=== PATIENT | female | born 1975 | race American Indian/Alaskan Native ===

== ENCOUNTER 2017-05-13 15:00 | Inpatient (IN) | payer OTHER ==
[2017-05-13] MEDS ORDERED: ASPIRIN PO ONE (15:12)
[2017-05-13 16:00] LABS: BUN/Creatinine Ratio 13; Blood Urea Nitrogen 8 mg/dL (7-17); Calcium 8.1 mg/dL (8.4-10.2); Hemolysis Index 0
[2017-05-13 16:03] LABS: Basophils # (Auto) 0.1 K/mm3 (0.0-0.1); Basophils % (Auto) 0.9 % (0.0-1.8); Eosinophils # (Auto) 0.3 K/mm3 (0.0-0.4); Eosinophils % (Auto) 4.9 % (0.0-4.3); Lymphocytes # (Auto) 2.6 K/mm3 (1.2-5.4); Lymphocytes % (Auto) 39.5 % (13.4-35.0); Mean Corpuscular HGB Conc 28 % (30-34); Monocytes # (Auto) 0.9 K/mm3 (0.0-0.8); Monocytes % (Auto) 14.1 % (0.0-7.3); Red Blood Count 4.28 M/mm3 (3.65-5.03)
[2017-05-13 16:06] LABS: Hematocrit 24.6 % (30.3-42.9); Hemoglobin 6.9 gm/dl (10.1-14.3); Mean Corpuscular Hemoglobin 16 pg (28-32); Mean Corpuscular Volume 58 fl (79-97); Red Cell Distribution Width 24.4 % (13.2-15.2)
[2017-05-13 16:07] LABS: Platelet Count 226 K/mm3 (140-440)
[2017-05-13 16:21] LABS: INR 0.96 (0.87-1.13)
[2017-05-13] MEDS ORDERED: NITROSTAT SL PRN (16:34)
[2017-05-13] MEDS ORDERED: NACL 0.9% 500 ML 500 ML IV ONE (16:34)
[2017-05-13] MEDS ORDERED: NACL 0.9% 1000 ML 1,000 ML IV ONE (16:35)
--- NOTE | 2017-05-13 17:34 | Emergency Department Report ---
ED Chest Pain HPI - General Chief Complaint: Chest Pain Stated Complaint: CHEST PAIN Time Seen by Provider: 05/13/17 16:08 Source: patient Mode of arrival: Ambulatory Limitations: No Limitations - History of Present Illness Initial Comments: Patient is a 42-year-old female with a past history of chronic anemia whose last blood transfusion was 3 years ago he presented today with several days of chest pain and shortness of breath. Patient states her shortness of breath is worse with exertion or chest pains been constant for approximately 2 days. Patient states that she has not had any nausea vomiting or diarrhea or cough at this time. MD Complaint: chest pain Severity: moderate Severity scale (0 -10): 7 Quality: tightness Consistency: constant Improves With: nothing Worsens With: exertion re: dyspnea. denies: nausea, vomting, diaphoresis, sense of impending doom Other Symptoms: denies: cough, fever, syncope Treatments Prior to Arrival: none - Related Data Home Medications Medication Instructions Recorded Confirmed Last Taken No Known Home Medications [No 05/13/17 05/13/17 Unknown Reported Home Medications] Allergies Allergy/AdvReac Type Severity Reaction Status Date / Time amoxicillin [From Augmentin] Allergy Hives Verified 05/13/17 15:08 clavulanic acid Allergy Hives Verified 05/13/17 15:08 [From Augmentin] latex Allergy Hives Verified 05/13/17 15:08 Penicillins Allergy Hives Verified 05/13/17 15:08 povidone-iodine Allergy Hives Verified 05/13/17 15:08 [From Betadine] soap [From Betadine] Allergy Hives Verified 05/13/17 15:08 Sulfa (Sulfonamide Allergy Hives Verified 05/13/17 15:08 Antibiotics) tramadol Allergy Hives Verified 05/13/17 15:08 Heart Score - HEART Score History: Moderately suspicious EKG: Non-specific Age: < 45 Risk factors: 1-2 risk factors Troponin: < normal limit HEART Score: 3 ED Review of Systems ROS: Stated complaint: CHEST PAIN Other details as noted in HPI Comment: All other systems reviewed and negative ED Past Medical Hx - Past Medical History Previous Medical History?: Yes Additional medical history: anemic - Surgical History Past Surgical History?: Yes Additional Surgical History: gastric bypass - Social History Smoking Status: Current Every Day Smoker Substance Use Type: Alcohol - Medications Home Medications: Home Medications Medication Instructions Recorded Confirmed Last Taken Type No Known Home Medications [No 05/13/17 05/13/17 Unknown History Reported Home Medications] ED Physical Exam - General Limitations: No Limitations General appearance: alert, in no apparent distress - Head Head exam: Present: atraumatic, normocephalic - Eye Eye exam: Present: normal appearance - ENT ENT exam: Present: mucous membranes moist - Neck Neck exam: Present: normal inspection - Respiratory Respiratory exam: Present: normal lung sounds bilaterally. Absent: respiratory distress, wheezes, rales, rhonchi - Cardiovascular Cardiovascular Exam: Present: normal rhythm, tachycardia. Absent: systolic murmur, diastolic murmur, rubs, gallop - GI/Abdominal GI/Abdominal exam: Present: soft, normal bowel sounds - Extremities Exam Extremities exam: Present: normal inspection - Back Exam Back exam: Present: normal inspection - Neurological Exam Neurological exam: Present: alert, oriented X3 - Psychiatric Psychiatric exam: Present: normal affect, normal mood - Skin Skin exam: Present: warm, dry, intact, normal color. Absent: rash ED Course Vital Signs 05/13/17 15:09 Temperature 98.5 F Pulse Rate 108 H Respiratory 16 Rate Blood Pressure 100/80 O2 Sat by Pulse 100 Oximetry COLLIN score - Collin Score Age > 65: (0) No Aspirin use within the Past 7 Days: (0) No 3 or more CAD Risk Factors: (0) No 2 or more Angina events in past 24 hrs: (1) Yes Known CAD with more than 50% Stenosis: (0) No Elevated Cardiac Markers: (0) No ST Deviation Greater than 0.5mm: (0) No COLLIN Score: 1 ED Medical Decision Making - Lab Data Result diagrams: 05/13/17 15:28 05/13/17 15:28 - EKG Data -: EKG Interpreted by Ct - EKG Data Interpretation: other (patient's EKG shows sinus tachycardia 125 axis is normal intervals are normal there is no ST segment elevations or depressions, interpretation is 1501) - Medical Decision Making This is a 42-year-old [place] female who has a history of pernicious anemia with hemoglobin 6.9 with that his symptomatic shortness of breath and chest pain patient will be admitted at this time to Dr. Keen Critical Care Time: Yes Critical care time in (mins) excluding proc time.: 30 Critical care attestation.: If time is entered above; I have spent that time in minutes in the direct care of this critically ill patient, excluding procedure time. ED Disposition Clinical Impression: Symptomatic anemia, Unstable angina Disposition: OP ADMIT IP TO THIS HOSP Is pt being admited?: Yes Does the pt Need Aspirin: Yes Condition: Stable Instructions: Angina (ED) Referrals: PRIMARY CARE, [Primary Care Provider] - 3-5 Days
[2017-05-13] MEDS ORDERED: NACL 0.9% 1000 ML 1,000 ML ONE (20:15)
[2017-05-13] MEDS: HEPARIN SUB-Q SCH (22:14)
--- NOTE | 2017-05-13 23:57 | Event Note ---
Date: 05/13/17 See dictated H/p in reports Chest pain w/u Anemia - s/p Gastric leeve
[2017-05-14] MEDS ORDERED: DILAUDID IV PRN (00:53)
[2017-05-14] MEDS ORDERED: ZOFRAN IV PRN (00:53)
[2017-05-14] MEDS ORDERED: AMBIEN PO PRN (00:53)
[2017-05-14] MEDS ORDERED: MILK OF MAGNESIA PO PRN (00:53)
[2017-05-14] MEDS ORDERED: TYLENOL PO PRN (00:53)
[2017-05-14] MEDS ORDERED: DULCOLAX PR PRN (00:53)
[2017-05-14] MEDS ORDERED: PERCOCET 5/325 PO PRN (00:53)
[2017-05-14] MEDS ORDERED: NACL 0.9% 500 ML 500 ML IV ONE (00:56)
[2017-05-14] MEDS ORDERED: PEPCID IV SCH (01:00)
[2017-05-14] MEDS ORDERED: NACL 0.9% 1000 ML 1,000 ML IV SCH (01:00)
[2017-05-14] MEDS: HEPARIN SUB-Q SCH (05:14)
--- NOTE | 2017-05-14 08:17 | History and Physical Report ---
CHIEF COMPLAINT: Left-sided chest pain. HISTORY OF PRESENT ILLNESS: A 42-year-old female with history of chronic anemia, comes in for left-sided chest pain. Chest pain for the last 3-4 days, more with exertion. No diaphoresis, no palpitations. Chest pain on exertion also present. No syncope. No recent travel. No nausea, no vomiting. PAST MEDICAL HISTORY: Significant for recurrent anemia. PAST SURGICAL HISTORY: Gastric bypass surgery. SOCIAL HISTORY: Smokes over half a pack a day. Alcohol occasionally. FAMILY HISTORY: Hypertension. REVIEW OF SYSTEMS: Significant for chest pain and feeling weak. Chest pain on exertion present. Slight shortness of breath present. Otherwise, review of systems is essentially negative. Additional history of present illness, chest pain is about 7 on a scale of 1-10, exacerbated with exertion, relieved with rest. REVIEW OF SYSTEMS: Other than chest pain, essentially negative. Feeling weak at present. PHYSICAL EXAMINATION: GENERAL: A middle-aged female, cooperative during examination. VITAL SIGNS: Blood pressure is 100/80, temperature is 98.5, pulse is 108, respirations are 16. HEENT: Unremarkable. Pale mucous membranes. NECK: Supple, no lymphadenopathy, no thyromegaly. LUNGS: Clear to auscultation and percussion. Good air entry. CARDIOVASCULAR: S1, S2 heard. No gallop, no murmur, no rub. Apical impulse in left fifth intercostal space and midclavicular line. ABDOMEN: Soft and benign. No hepatosplenomegaly. No guarding, no rigidity. Hernial orifices are normal. EXTREMITIES: Good pedal pulses. No pedal edema. CENTRAL NERVOUS SYSTEM: Alert and oriented x 4, nonfocal exam. LABORATORY DATA: Significant for hemoglobin of 6.9 and hematocrit of 24.6. Electrolytes are normal. ASSESSMENT AND PLAN: 1. Acute chest pain. 2. Chest pain, rule out myocardial infarction, chest pain protocol. Lexiscan in the morning. Repeat EKG. 2. 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 We will get an intrinsic factor and folic acid levels. Transfuse 1-2 units of packed red blood cells. 4. Deep venous thrombosis prophylaxis, Lovenox 40 mg subcutaneous daily. IV fluids. Check Lexiscan and follow. After blood transfusion, possible discharge. Check folic acid level. JOB# [id number] THOMAS/ANDREA
[2017-05-14] MEDS ORDERED: LEXISCAN IV ONE (10:05)
[2017-05-14 12:32] VITALS: BP 111/75
--- NOTE | 2017-05-14 13:09 | Progress Note ---
Assessment and Plan Assessment and plan: Patient is 42-year-old woman history of anemia presents with Chest Pain. She was found to have a hemoglobin level of 6.9 -Chest pain, atypical, most likely due to anemia: Stress test negative -Acute on chronic anemia suspected due to iron deficiency status post 2 units PRBC transfusions: Stat H&H History Interval history: Patient was seen and examined. Follow-up on current diagnosis of chest pain resolved. Overnight uneventful. Patient denies any chest pain, shortness breath, nausea/vomiting or severe headaches. Imaging, nursing note, chart, labs and old chart reviewed. Discussed with patient. Hospitalist Physical - Physical exam Narrative exam: GEN: WDWN, NAD, AWAKE, ALERT, ORIENTATED 3 HEENT: NCAT, EOMI, PERRL, OP Clear NECK: supple, no adenopathy, no thyromegaly, no JVD CVS/HEART: RRR, NORMAL S1S2, pulses present bilaterally CHEST/LUNGS: CTA B, Symmetrical chest expansion, good air entry bilaterally GI/Abdomen: soft, NTND, good bowel sounds, no guarding or rebound /Bladder: no suprapubic tenderness, no CVA or paraspinal tenderness EXT/Skin: no c/c/e, no obvious rash MSK: FROM x 4 Neuro: CN 2-12 grossly intact, no new focal deficits Psych: calm - Constitutional Vitals: Temp Pulse Resp BP Pulse Ox 98.3 F 68 20 111/75 100 05/14/17 09:21 05/14/17 11:34 05/14/17 11:34 05/14/17 11:34 05/14/17 11:34 Results - Labs CBC & Chem 7: 05/13/17 15:28 05/13/17 15:28 Labs: Laboratory Last Values WBC 6.6 K/mm3 (4.5-11.0) 05/13/17 15:28 RBC 4.28 M/mm3 (3.65-5.03) 05/13/17 15:28 Hgb 6.9 gm/dl (10.1-14.3) L 05/13/17 15:28 Hct 24.6 % (30.3-42.9) L 05/13/17 15:28 MCV 58 fl (79-97) L 05/13/17 15:28 MCH 16 pg (28-32) L 05/13/17: MCHC 28 % (30-34) L 05/13/17: RDW 24.4 % (13.2-15.2) H 05/13/17 Plt Count 226 K/mm3 (140-440) 05/13/17 Lymph % (Auto) 39.5 % (13.4-35.0) H 05/13/17: Harding % (Auto) 14.1 % (0.0-7.3) H 05/13/17: Eos % (Auto) 4.9 % (0.0-4.3) H 05/13/17 Baso % (Auto) 0.9 % (0.0-1.8) 05/13/17 Lymph # 2.6 K/mm3 (1.2-5.4) 05/13/17 Harding # 0.9 K/mm3 (0.0-0.8) H 05/13/17 Eos # 0.3 K/mm3 (0.0-0.4) 05/13/17 Baso # 0.1 K/mm3 (0.0-0.1) 05/13/17 Seg Neutrophils % 40.6 % (40.0-70.0) 05/13/17 Seg Neutrophils # 2.7 K/mm3 (1.8-7.7) 05/13/17 PT 13.3 Sec. (12.2-14.9) 05/13/17 INR 0.96 (0.87-1.13) 05/13/17 Sodium 139 mmol/L (137-145) 05/13/17 Potassium 3.8 mmol/L (3.6-5.0) 05/13/17 Chloride 102.0 mmol/L (98-107) 05/13/17 Carbon Dioxide 20 mmol/L (22-30) L 05/13/17 Anion Gap 21 mmol/L 05/13/17 BUN 8 mg/dL (7-17) 05/13/17 Creatinine 0.6 mg/dL (0.7-1.2) L 05/13/17 15:28 Estimated GFR > 60 ml/min 05/13/17 15:28 BUN/Creatinine Ratio 13 % 05/13/17 15:28 Glucose 93 mg/dL (65-100) 05/13/17 15:28 Calcium 8.1 mg/dL (8.4-10.2) L 05/13/17 15:28 Troponin T < 0.010 ng/mL (0.00-0.029) 05/14/17 05:15 Blood Type B POSITIVE 05/13/17 16:43 Antibody Screen Negative 05/13/17 16:43 Crossmatch See Detail 05/13/17 16:43
--- NOTE | 2017-05-14 13:12 | Discharge Summary ---
Providers - Providers Date of Admission: 05/13/17 17:35 Date of discharge: 05/14/17 Attending physician: AGNES CHIRINOS Primary care physician: ROHAN MCCARTHY Hospitalization Condition: Stable Hospital course: Patient is 42-year-old woman history of anemia presents with Chest Pain. She was found to have a hemoglobin level of 6.9 -Chest pain, atypical, most likely due to anemia: Stress test negative -Acute on chronic anemia suspected due to iron deficiency status post 2 units PRBC transfusions: Stat H&H Disposition: DC-01 TO HOME OR SELFCARE Time spent for discharge: 31 min Core Measure Documentation - Palliative Care Palliative Care/ Comfort Measures: Not Applicable - Core Measures Any of the following diagnoses?: none - VTE Discharge Requirements Deep Vein Thrombosis/Pulmonary Embolism Present on Admission: No Has pt received <5 days of overlap therapy or INR<2.0: No Anticoagulant overlap therapy prescribed at discharge: No Contraindication No Overlap Therapy order at DC: Not Indicated Exam - Physical Exam Narrative exam: GEN: WDWN, NAD, AWAKE, ALERT, ORIENTATED 3 HEENT: NCAT, EOMI, PERRL, OP Clear NECK: supple, no adenopathy, no thyromegaly, no JVD CVS/HEART: RRR, NORMAL S1S2, pulses present bilaterally CHEST/LUNGS: CTA B, Symmetrical chest expansion, good air entry bilaterally GI/Abdomen: soft, NTND, good bowel sounds, no guarding or rebound /Bladder: no suprapubic tenderness, no CVA or paraspinal tenderness EXT/Skin: no c/c/e, no obvious rash MSK: FROM x 4 Neuro: CN 2-12 grossly intact, no new focal deficits Psych: calm - Constitutional Vitals: Temp Pulse Resp BP Pulse Ox 98.3 F 68 20 111/75 100 05/14/17 09:21 05/14/17 11:34 05/14/17 11:34 05/14/17 11:34 05/14/17 11:34 Plan Activity: other (no strenous activity until cleared by pcp) Diet: regular Follow up with: PRIMARY CARE, [Referring] - 3-5 Days Prescriptions: Iron,Carbonyl/Ascorbic Acid [Iron 100-Vitamin C Tablet] 1 each PO BID #60 tablet Polyethylene Glycol 3350 [Miralax 3350] 17 gm PO QDAY PRN #14 packet PRN Reason: Constipation
[2017-05-14 14:36] LABS: Hematocrit 27.1 % (30.3-42.9); Hemoglobin 7.9 gm/dl (10.1-14.3)
[2017-05-14 15:01] LABS: % Iron Saturation 3.94 %
[2017-05-14] MEDS ORDERED: PEPCID PO SCH (22:00)
--- NOTE | 2017-05-15 07:17 | Treadmill Report ---
INDICATION: Shortness of breath. ORDERING PHYSICIAN: Dr. Rachelle Keen. FINDINGS: There is no scintigraphic evidence of myocardial ischemia. There is mild decreased counts noted in the anterior wall on stress imaging secondary to overlying breast attenuation. The left ventricle is normal in size and systolic function. The left ventricular ejection fraction is measured at 70% with normal wall motion and wall thickening. CONCLUSION: 1. No scintigraphic evidence of myocardial ischemia. 2. Mildly decreased counts noted in the anterior wall on stress imaging due to breast attenuation artifact. 3. Normal left ventricular size and wall motion. 4. This is a low risk myocardial perfusion scan associated with adverse cardiovascular events of less than 1% in the next 1 year. JOB# [id number] SAM/ANDREA
== END 2017-05-14 17:40 | disposition home or self-care (01) | DRG 812 ==
LOC: ED 15:00 → 4A 17:35
PROVIDERS: ADMIT Internal Medicine; ATTEND Internal Medicine
PROC: 30233N1 Transfusion of Nonautologous Red Blood Cells into Peripheral Vein, Percutaneous Approach (ICD-10-PCS; principal; 2017-05-13)
DX: D50.9 Iron deficiency anemia, unspecified (principal); F17.200 Nicotine dependence, unspecified, uncomplicated; Z88.6 Allergy status to analgesic agent; Z88.2 Allergy status to sulfonamides; Z88.0 Allergy status to penicillin; Z88.1 Allergy status to other antibiotic agents; Z91.041 Radiographic dye allergy status; Z91.040 Latex allergy status; Z91.048 Other nonmedicinal substance allergy status
CPT/HCPCS: 36415; 78452; 80048; 82607; 82747; 83550; 84484; 85014; 85018; 85025; 85610; 86850; 86900; 86901; 86920; 93005; 93010; 93017; 99291; A9502; J1170; J1644; J2785; J7030; P9016

== ENCOUNTER 2020-04-20 11:26 | Observation (INO) | payer OTHER ==
[2020-04-20] MEDS ORDERED: ACETAMINOPHEN 325 MG TAB PO PRN (13:45)
[2020-04-20] MEDS ORDERED: ONDANSETRON 4 MG/2 ML INJ IV PRN (13:45)
[2020-04-20] MEDS ORDERED: METOCLOPRAMIDE 10 MG/2 ML INJ IV PRN (13:45)
[2020-04-20] MEDS ORDERED: HYDROmorphone 1 MG/1 ML INJ IV PRN (13:45)
[2020-04-20] MEDS ORDERED: D5W/0.9% NACL 1,000 ML IV SCH (14:00)
[2020-04-20 15:09] LABS: Hematocrit 23.6 % (30.3-42.9); Hemoglobin 6.4 gm/dl (10.1-14.3); Mean Corpuscular HGB Conc 27 % (30-34); Mean Corpuscular Volume 58 fl (79-97); Platelet Count 306 K/mm3 (140-440); Red Blood Count 4.09 M/mm3 (3.65-5.03); Red Cell Distribution Width 23.5 % (13.2-15.2)
[2020-04-20 15:20] LABS: Alanine Aminotransferase 7 units/L (7-56); Albumin 3.7 g/dL (3.9-5); Blood Urea Nitrogen 10 mg/dL (7-17); Calcium 8.3 mg/dL (8.4-10.2); Chol/HDL Ratio 2.67 %; HDL Cholesterol 55 mg/dL (40-59); Hemolysis Index 0; LDL Cholesterol,Direct 94 mg/dL (50-130)
[2020-04-20 15:23] LABS: Eosinophils # (Auto) 0.3 K/mm3 (0.0-0.4); Eosinophils % (Auto) 4.3 % (0.0-4.3); Monocytes # (Auto) 0.5 K/mm3 (0.0-0.8); Monocytes % (Auto) 7.8 % (0.0-7.3)
[2020-04-20 15:25] LABS: Basophils % (Auto) 0.7 % (0.0-1.8); Lymphocytes # (Auto) 2.3 K/mm3 (1.2-5.4); Lymphocytes % (Auto) 35.9 % (13.4-35.0)
[2020-04-20 15:30] LABS: BUN/Creatinine Ratio 20
[2020-04-20] MEDS: FAMOTIDINE 20 MG/2 ML INJ IV SCH ×2 (15:34→21:22)
[2020-04-20] MEDS: HEPARIN 5,000 UNIT/1 ML VIAL SUB-Q SCH ×2 (15:34→21:21)
[2020-04-20] MEDS: oxyCODONE /ACETAMINOPHEN 5-325MG TAB PO PRN ×2 (15:40→23:34)
[2020-04-20 18:25] LABS: % Iron Saturation 2.66 %
[2020-04-20] MEDS ORDERED: SODIUM CHLORIDE 0.9% 500 ML 500 ML IV ONE (19:00)
[2020-04-21 07:44] LABS: Mean Corpuscular HGB Conc 30 % (30-34); Platelet Count 194 K/mm3 (140-440)
[2020-04-21 08:02] LABS: Blood Urea Nitrogen 10 mg/dL (7-17); Hemolysis Index 1
--- NOTE | 2020-04-21 08:08 | History and Physical Report ---
History of Present Illness Date of examination: 04/20/20 Date of admission: 04/20/20 14:02 Chief complaint: Low Hemoglobin of 5 gm reported to her by her pcp History of present illness: 45 year old female with chronic anemia comes in for low hemoglobin and low hem atocrit.Patient has been gettting fatigued easily and SOB.No menorrhagia .Cause of her anemia not known.Hx of Thalassemia trait. No dark stools.No hematemesis. Past History Past Medical History: other (Depression,) Past Surgical History: No surgical history, , tonsillectomy, Other (Gastric bypass) Social history: smoking Family history: hypertension Medications and Allergies Allergies Allergy/AdvReac Type Severity Reaction Status Date / Time amoxicillin [From Augmentin] Allergy Hives Verified 05/13/17 15:08 clavulanic acid Allergy Hives Verified 05/13/17 15:08 [From Augmentin] latex Allergy Hives Verified 05/13/17 15:08 Penicillins Allergy Hives Verified 05/13/17 15:08 povidone-iodine Allergy Hives Verified 05/13/17 15:08 [From Betadine] soap [From Betadine] Allergy Hives Verified 05/13/17 15:08 Sulfa (Sulfonamide Allergy Hives Verified 05/13/17 15:08 Antibiotics) tramadol Allergy Hives Verified 05/13/17 15:08 Home Medications Medication Instructions Recorded Confirmed Last Taken Type Citalopram [celeXA] 10 mg PO QDAY 04/20/20 04/20/20 1 Day Ago History ~04/19/20 Docusate Sodium [Colace] 100 mg PO DAILY 04/20/20 04/20/20 04/20/20 History Ferrous Sulfate [Ferrous Sulfate 648 mg PO BID 04/20/20 04/20/20 04/20/20 History 324 MG] Multivit-Min/Iron/Folic Acid/K 1 each PO DAILY 04/20/20 04/20/20 04/20/20 History [Adults Multivitamin Tablet] Vitamin B-12 1 ml SUB-Q Q2W 04/20/20 04/20/20 04/08/20 History tiZANidine [Zanaflex 4mg TAB] 4 mg PO QHS 04/20/20 04/20/20 04/19/20 History Active Meds: Active Medications Acetaminophen (Acetaminophen 325 Mg Tab) 650 mg PO Q4H PRN PRN Reason: Pain MILD(1-3)/Fever >100.5/KINNEY Famotidine (Famotidine 20 Mg/2 Ml Inj) 20 mg IV BID [facility] Last Admin: 04/20/20 21:22 Dose: 20 mg Documented by: Heparin Sodium (Porcine) (Heparin 5,000 Unit/1 Ml Vial) 5,000 unit SUB-Q Q12HR [facility] Last Admin: 04/20/20 21:21 Dose: 5,000 unit Documented by: Hydromorphone HCl (Hydromorphone 1 Mg/1 Ml Inj) 0.5 mg IV Q3H PRN PRN Reason: Pain , Severe (7-10) Dextrose/Sodium Chloride (D5ns) 1,000 mls @ 42 mls/hr IV DIRECT [facility] Last Admin: 04/20/20 15:33 Dose: 42 mls/hr Documented by: Metoclopramide HCl (Metoclopramide 10 Mg/2 Ml Inj) 10 mg IV Q6H PRN PRN Reason: Nausea And Vomiting Ondansetron HCl (Ondansetron 4 Mg/2 Ml Inj) 4 mg IV Q8H PRN PRN Reason: Nausea And Vomiting Oxycodone/Acetaminophen (Oxycodone /Acetaminophen 5-325mg Tab) 1 tab PO Q6H PRN PRN Reason: Pain, Moderate (4-6) Last Admin: 04/20/20 23:34 Dose: 1 tab Documented by: Sodium Chloride (Sodium Chloride 0.9% 10 Ml Flush Syringe) 10 ml IV BID [facility] Last Admin: 04/20/20 21:20 Dose: 10 ml Documented by: Sodium Chloride (Sodium Chloride 0.9% 10 Ml Flush Syringe) 10 ml IV PRN PRN PRN Reason: LINE FLUSH Review of Systems All systems: negative Constitutional: fatigue, poor appetite Exam - Constitutional Vitals: Temp Pulse Resp BP Pulse Ox 98.1 F 62 16 105/46 100 04/21/20 05:53 04/21/20 05:53 04/21/20 05:53 04/21/20 05:53 04/21/20 05:53 General appearance: Present: no acute distress, well-nourished - EENT Eyes: Present: PERRL ENT: hearing intact, clear oral mucosa - Neck Neck: Present: supple, normal ROM - Respiratory Respiratory effort: normal Respiratory: bilateral: CTA - Cardiovascular Heart rate: 78 Rhythm: regular Heart Sounds: Present: S1 & S2. Absent: rub, click - Extremities Extremities: pulses symmetrical, No edema Peripheral Pulses: within normal limits - Abdominal General gastrointestinal: Present: soft, non-tender, non-distended, normal bowel sounds Female genitourinary: Present: normal - Integumentary Integumentary: Present: clear, warm, dry - Musculoskeletal Musculoskeletal: gait normal, strength equal bilaterally - Psychiatric Psychiatric: appropriate mood/affect, intact judgment & insight - Neurologic Neurologic: CNII-XII intact, moves all extremities HEART Score - HEART Score History: Slightly suspicious EKG: Non-specific Risk factors: No known risk factors Troponin: < normal limit - Critical Actions Critical Actions: 0-3 pts:0.9-1.7%risk of adverse cardiac event.Candidate for discharge Results - Labs CBC & Chem 7: 04/21/20 06:41 04/21/20 06:41 Labs: Laboratory Last Values WBC 6.4 K/mm3 (4.5-11.0) 04/20/20 14:27 RBC 4.09 M/mm3 (3.65-5.03) 04/20/20 14:27 Hgb 6.4 gm/dl (10.1-14.3) L 04/20/20 14:27 Hct 23.6 % (30.3-42.9) L 04/20/20 14:27 MCV 58 fl (79-97) L 04/20/20 14:27 MCH 16 pg (28-32) L 04/20/20 14:27 MCHC 27 % (30-34) L 04/20/20 14:27 RDW 23.5 % (13.2-15.2) H 04/20/20 14:27 Plt Count 306 K/mm3 (140-440) 04/20/20 14:27 Lymph % (Auto) 35.9 % (13.4-35.0) H 04/20/20 14:27 [place] % (Auto) 7.8 % (0.0-7.3) H 04/20/20 14:27 Eos % (Auto) 4.3 % (0.0-4.3) 04/20/20 14:27 Baso % (Auto) 0.7 % (0.0-1.8) 04/20/20 14:27 Lymph # (Auto) 2.3 K/mm3 (1.2-5.4) 04/20/20 14:27 [place] # (Auto) 0.5 K/mm3 (0.0-0.8) 04/20/20 14:27 Eos # (Auto) 0.3 K/mm3 (0.0-0.4) 04/20/20 14:27 Baso # (Auto) 0.0 K/mm3 (0.0-0.1) 04/20/20 14:27 Add Manual Diff Complete 04/20/20 14:27 Seg Neutrophils % 51.3 % (40.0-70.0) 04/20/20 14:27 Nucleated RBC % Not Reportable 04/20/20 14:27 Seg Neutrophils # 3.3 K/mm3 (1.8-7.7) 04/20/20 14:27 WBC Morphology Not Reportable 04/20/20 14:27 Hypersegmented Neuts Not Reportable 04/20/20 14:27 Hyposegmented Neuts Not Reportable 04/20/20 14:27 Hypogranular Neuts Not Reportable 04/20/20 14:27 Smudge Cells Not Reportable 04/20/20 14:27 Toxic Granulation Not Reportable 04/20/20 14:27 Toxic Vacuolation Not Reportable 04/20/20 14:27 Dohle Bodies Not Reportable 04/20/20 14:27 Pelger-Huet Anomaly Not Reportable 04/20/20 14:27 Vicky Rods Not Reportable 04/20/20 14:27 Platelet Estimate Not Reportable 04/20/20 14:27 Clumped Platelets Not Reportable 04/20/20 14:27 Plt Clumps, EDTA Not Reportable 04/20/20 14:27 Large Platelets Not Reportable 04/20/20 14:27 Giant Platelets Not Reportable 04/20/20 14:27 Platelet Satelliting Not Reportable 04/20/20 14:27 Plt Morphology Comment Not Reportable 04/20/20 14:27 RBC Morphology Not Reportable 04/20/20 14:27 Dimorphic RBCs Not Reportable 04/20/20 14:27 Polychromasia Not Reportable 04/20/20 14:27 Hypochromasia Not Reportable 04/20/20 14:27 Poikilocytosis Not Reportable 04/20/20 14:27 Anisocytosis Not Reportable 04/20/20 14:27 Microcytosis Not Reportable 04/20/20 14:27 Macrocytosis Not Reportable 04/20/20 14:27 Spherocytes Not Reportable 04/20/20 14:27 Pappenheimer Bodies Not Reportable 04/20/20 14:27 Sickle Cells Not Reportable 04/20/20 14:27 Target Cells Not Reportable 04/20/20 14:27 Tear Drop Cells Not Reportable 04/20/20 14:27 Ovalocytes Not Reportable 04/20/20 14:27 Helmet Cells Not Reportable 04/20/20 14:27 [place] Bodies Not Reportable 04/20/20 14:27 [place] Rings Not Reportable 04/20/20 14:27 Fani Cells Not Reportable 04/20/20 14:27 Bite Cells Not Reportable 04/20/20 14:27 Crenated Cell Not Reportable 04/20/20 14:27 Elliptocytes Not Reportable 04/20/20 14:27 Acanthocytes (Spur) Not Reportable 04/20/20 14:27 Rouleaux Not Reportable 04/20/20 14:27 Hemoglobin C Crystals Not Reportable 04/20/20 14:27 Schistocytes Not Reportable 04/20/20 14:27 Malaria parasites Not Reportable 04/20/20 14:27 Abel Bodies Not Reportable 04/20/20 14:27 Hem Pathologist Commnt Not Reportable 04/20/20 14:27 Sodium 139 mmol/L (137-145) 04/21/20 06:41 Potassium 3.6 mmol/L (3.6-5.0) 04/21/20 06:41 Chloride 108.6 mmol/L (98-107) H 04/21/20 06:41 Carbon Dioxide 24 mmol/L (22-30) 04/21/20 06:41 Anion Gap 10 mmol/L 04/21/20 06:41 BUN 10 mg/dL (7-17) 04/21/20 06:41 Creatinine 0.5 mg/dL (0.6-1.2) L 04/20/20 14:27 Estimated GFR > 60 ml/min 04/20/20 14:27 BUN/Creatinine Ratio 20 % 04/20/20 14:27 Glucose 78 mg/dL (65-100) 04/21/20 06:41 Hemoglobin A1c 6.1 % (4-6) H 04/20/20 14:27 Calcium 8.0 mg/dL (8.4-10.2) L 04/21/20 06:41 Iron 10 ug/dL (37-170) L 04/20/20 17:30 TIBC 376 mcg/dL (250-450) 04/20/20 17:30 % Saturation 2.66 % 04/20/20 17:30 Transferrin 310 mg/dl (192-382) 04/20/20 17:30 Total Bilirubin < 0.20 mg/dL (0.1-1.2) 04/20/20 14:27 AST 14 units/L (5-40) 04/20/20 14:27 ALT 7 units/L (7-56) 04/20/20 14:27 Alkaline Phosphatase 64 units/L (35-129) 04/20/20 14:27 Total Protein 6.2 g/dL (6.3-8.2) L 04/20/20 14:27 Albumin 3.7 g/dL (3.9-5) L 04/20/20 14:27 Albumin/Globulin Ratio 1.5 % 04/20/20 14:27 Triglycerides 76 mg/dL (2-149) 04/20/20 14:27 Cholesterol 147 mg/dL (50-199) 04/20/20 14:27 LDL Cholesterol Direct 94 mg/dL (50-130) 04/20/20 14:27 HDL Cholesterol 55 mg/dL (40-59) 04/20/20 14:27 Cholesterol/HDL Ratio 2.67 % 04/20/20 14:27 Vitamin B12 331.2 pg/mL (211-911) 04/20/20 17:30 Blood Type B POSITIVE 04/20/20 14:30 Antibody Screen Negative 04/20/20 14:30 Crossmatch See Detail 04/20/20 14:30 Shor Short CBC 04/20/20 04/21/20 Range/Units 14:27 06:41 WBC 6.4 5.7 (4.5-11.0) K/mm3 Hgb 6.4 L 8.2 L (10.1-14.3) gm/dl Hct 23.6 L 27.9 L (30.3-42.9) % Plt Count 306 194 (140-440) K/mm3 [facility] 04/20/20 04/21/20 14:27 06:41 Sodium 137 139 Potassium 3.9 3.6 Chloride 104.8 108.6 H Carbon Dioxide 25 24 BUN 10 10 Creatinine 0.5 L 0.5 L Glucose 156 H 78 Calcium 8.3 L 8.0 L Liver Function 04/20/20 Range/Units 14:27 Total Bilirubin < 0.20 (0.1-1.2) mg/dL AST 14 (5-40) units/L ALT 7 (7-56) units/L Alkaline Phosphatase 64 (35-129) units/L Albumin 3.7 L (3.9-5) g/dL t CBC 04/20/20 Range/Units 14:27 WBC 6.4 (4.5-11.0) K/mm3 Hgb 6.4 L (10.1-14.3) gm/dl Hct 23.6 L (30.3-42.9) % Plt Count 306 (140-440) K/mm3 [facility] 04/20/20 04/21/20 14:27 06:41 Sodium 137 139 Potassium 3.9 3.6 Chloride 104.8 108.6 H Carbon Dioxide 25 24 BUN 10 10 Creatinine 0.5 L Glucose 156 H 78 Calcium 8.3 L 8.0 L Liver Function 04/20/20 Range/Units 14:27 Total Bilirubin < 0.20 (0.1-1.2) mg/dL AST 14 (5-40) units/L ALT 7 (7-56) units/L Alkaline Phosphatase 64 (35-129) units/L Albumin 3.7 L (3.9-5) g/dL Ramsay/IV: Voiding Method Toilet IV Catheter Type [Left Hand] Peripheral IV IV Catheter Type [Left INT / Saline Lock Antecubital] Assessment and Plan Advance Directives: Yes (Full code) VTE prophylaxis?: Mechanical Plan of care discussed with patient/family: Yes - Patient Problems (1) Symptomatic anemia Current Visit: No Status: Acute Plan to address problem: Transfused 2 units of blood Hemoglobin was five g at home Patient admitted for 2 units of blood transfusion Anemia work-up (2) Iron deficiency Current Visit: Yes Status: Chronic Plan to address problem: Patient has severe iron deficiency IV infusion (3) Depression Current Visit: Yes Status: Chronic Plan to address problem: Continue citalopram (4) DVT prophylaxis Current Visit: Yes Status: Acute Plan to address problem: On SCDs and GI prophylaxis
[2020-04-21 08:11] LABS: BUN/Creatinine Ratio 20
[2020-04-21 08:36] LABS: Hematocrit 27.9 % (30.3-42.9); Hemoglobin 8.2 gm/dl (10.1-14.3); Mean Corpuscular Volume 65 fl (79-97); Red Cell Distribution Width 33.1 % (13.2-15.2)
[2020-04-21] MEDS ORDERED: SODIUM FERRIC GLUCON/SUCRO 125 MG in SODIUM CHLORIDE 0.9% 100 ML IV ONE (09:30)
[2020-04-21] MEDS: FAMOTIDINE 20 MG/2 ML INJ IV SCH (09:39)
[2020-04-21] MEDS: oxyCODONE /ACETAMINOPHEN 5-325MG TAB PO PRN (09:39)
[2020-04-21] MEDS ORDERED: BUTALB/ACETAMINOPHEN/CAFFEINE TAB PO PRN (09:48)
[2020-04-21] MEDS ORDERED: MAGNESIUM HYDROXIDE (MOM) ORAL LIQD UDC PO PRN (09:48)
[2020-04-21] MEDS ORDERED: NON-FORMULARY EACH (Ferrous Sulfate [Ferrous Sulfate 324 Mg] 324 MG Tablet.Dr) PO SCH (10:00)
[2020-04-21] MEDS ORDERED: FOLIC ACID PO SCH (10:00)
[2020-04-21] MEDS ORDERED: MULTIVITAMINS,THER W-MINERALS TAB PO SCH (10:00)
[2020-04-21] MEDS ORDERED: MULTIVIT MIN PO SCH (10:00)
[2020-04-21] MEDS ORDERED: FERROUS SULFATE 325 MG TAB PO SCH (10:00)
[2020-04-21] MEDS ORDERED: [UNRECOGNIZED DRUG - OTHER] PO SCH (10:00)
[2020-04-21] MEDS ORDERED: CITALOPRAM 10 MG TAB PO SCH (10:00)
[2020-04-21] MEDS ORDERED: DOCUSATE SODIUM 100 MG CAP PO SCH (10:00)
[2020-04-21] MEDS ORDERED: IRON PO SCH (10:00)
[2020-04-21] MEDS: HEPARIN 5,000 UNIT/1 ML VIAL SUB-Q SCH (10:03)
[2020-04-21 11:08] LABS: Total Cells Counted 100
[2020-04-21 11:09] LABS: Hypochromasia 3+; Target Cells 1+; Tear Drop Cells Few
[2020-04-21 11:10] LABS: Giant Platelets Few
[2020-04-21 11:17] LABS: Platelet Estimate Consistent w Auto
[2020-04-21 11:57] VITALS: BP 108/58
--- NOTE | 2020-04-21 12:24 | Discharge Summary ---
Providers - Providers Date of Admission: 04/20/20 14:02 Date of discharge: 04/21/20 Attending physician: TATY JUSTIN Primary care physician: ROHAN MCCARTHY Hospitalization Hospital course: History of present illness: 45 year old female with chronic anemia comes in for low hemoglobin and low hematocrit.Patient has been gettting fatigued easily and SOB.No menorrhagia .Cause of her anemia not known.Hx of Thalassemia trait. No dark stools.No hematemesis. Assessment and Plan Advance Directives: Yes (Full code) VTE prophylaxis?: Mechanical Plan of care discussed with patient/family: Yes - Patient Problems (1) Symptomatic anemia Current Visit: No Status: Acute Plan to address problem: Transfused 2 units of blood Hemoglobin was five g at home Hemoglobin improved to 8.5 Patient to follow-up with hematology for work-up including electrophoresis and rule out thalassemia or hemoglobinopathies (2) Iron deficiency Current Visit: Yes Status: Chronic Plan to address problem: Patient has severe iron deficiency IV iron infusion given (3) Depression Current Visit: Yes Status: Chronic Plan to address problem: Continue citalopram (4) DVT prophylaxis Current Visit: Yes Status: Acute Plan to address problem: On SCDs and GI prophylaxis Disposition: - TO HOME OR SELFCARE - Discharge Diagnoses (1) Symptomatic anemia Status: Acute (2) Iron deficiency Status: Chronic (3) Depression Status: Chronic (4) DVT prophylaxis Status: Acute Core Measure Documentation - Palliative Care Palliative Care/ Comfort Measures: Not Applicable - Core Measures Any of the following diagnoses?: none Exam - Constitutional Vitals: Temp Pulse Resp BP Pulse Ox 98.1 F 64 16 108/58 100 04/21/20 11:19 04/21/20 11:19 04/21/20 11:19 04/21/20 11:19 04/21/20 11:19 General appearance: Present: no acute distress, well-nourished - EENT Eyes: Present: PERRL ENT: hearing intact, clear oral mucosa - Neck Neck: Present: supple, normal ROM - Respiratory Respiratory effort: normal Respiratory: bilateral: CTA - Cardiovascular Rhythm: regular Heart Sounds: Present: S1 & S2. Absent: rub, click - Extremities Extremities: pulses symmetrical, No edema Peripheral Pulses: within normal limits - Abdominal General gastrointestinal: Present: soft, non-tender, non-distended, normal bowel sounds Female genitourinary: Present: normal - Integumentary Integumentary: Present: clear, warm, dry - Musculoskeletal Musculoskeletal: gait normal, strength equal bilaterally - Psychiatric Psychiatric: appropriate mood/affect, intact judgment & insight - Neurologic Neurologic: CNII-XII intact, moves all extremities Plan Activity: no restrictions Diet: regular Follow up with: ROHAN MCCARTHY MD [Primary Care Provider] - 7 Days TREVOR LEONG MD [Staff Physician] - 7 Days
[2020-04-21] MEDS ORDERED: FAMOTIDINE 20 MG TAB PO SCH (22:00)
[2020-04-21] MEDS ORDERED: tiZANidine TAB 4 MG TAB PO SCH (22:00)
== END 2020-04-21 16:31 | disposition home or self-care (01) ==
LOC: UNDOADMOB 11:26 → 4A 11:26
PROVIDERS: ADMIT Internal Medicine; ATTEND Internal Medicine
DX: D64.9 Anemia, unspecified (principal); E61.1 Iron deficiency; F32.9 Major depressive disorder, single episode, unspecified; F17.210 Nicotine dependence, cigarettes, uncomplicated; Z90.49 Acquired absence of other specified parts of digestive tract; Z98.891 History of uterine scar from previous surgery; Z98.84 Bariatric surgery status; Z79.899 Other long term (current) drug therapy
CPT/HCPCS: 36415; 36430; 80048; 80053; 80061; 82607; 82747; 83036; 83550; 85007; 85025; 86850; 86900; 86901; 86920; 96361; 96365; 96372; 96375; 96376; 99406; G0378; G0379; J1644; J2405; J2916; J7040; J7042; P9016